=== PATIENT | female | born 1975 | race African-American/Black ===

== ENCOUNTER 2019-11-27 00:15 | Emergency (ER) | payer SELFPAY ==
[~2019-11-27] VITALS: Ht 162.6 cm; Wt 102.7 kg
--- NOTE | 2019-11-27 00:20 | PHYS DOC ---
Past History Past Medical History: Anemia, High Cholesterol, Other General Adult EDM: Chief Complaint: DIZZY/LIGHT HEADED HPI: HPI: ".. I ve been dizzy the last couple days....I even woke me up from sleep tonight.. the room spins... I get really nauseated... It was so bad .. I could not walk... I had a spell today.. and my mom was driving to [facility].. and I had to have her stop.... because I was going to vomit....It helps if I don't move... and close my eyes...until it passes... It is really bad if I sit up and turn to the right.. or if I lay down and roll over to the right... I almost vomit.. I got some Zofran at [facility] .. it seemed to help... but dizziness came back hard... 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 Symptoms have been present for last 48 hours.. Symptoms can be induced with rapid movements of head and turning to the right. Patient does have some increased nystagmus on rapidly reproducing position of head particularly in supine and rapidly setting her up. Patient denies any hearing loss with symptoms. Patient at times states the room appears to be spinning with severe onsets. Patient describes the sensation is like when she was a child she rode a spinning wheel and got off the world still seemed to be spinni ng even if she standing still. . The patient does not think she has any dysrhythmias that she is aware of with symptoms. Patient has not had any travel outside the [place] area. Patient denies any dyspnea with events of dizziness or vertigo . The patient denies any trauma. 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 Patient denies any history of fever or chills. Patient denies any recent cough. Patient denies any recent changes in use of caffeine. Patient denies any illicit drug use or alcohol use. (Does occasionally have a alcohol drink once or twice a year.) Patient does have a past history of anemia, and diabetes with her . Patient was seen at [facility] on 11/26/19 and symptoms seemed to respond to a dose of Zofran at that time. . Review of Systems: Review of Systems: Constitutional: Denies fever or chills Eyes: Denies change in visual acuity HENT: Denies nasal congestion or sore throat Respiratory: Denies cough or shortness of breath Cardiovascular: Denies chest pain or edema GI: Denies abdominal pain, nausea, vomiting, bloody stools or diarrhea : Denies dysuria Musculoskeletal: Denies back pain or joint pain Integument: Denies rash Neurologic: Denies headache, focal weakness or sensory changes . Complaints of episodic dizziness and vertigo x2 days Endocrine: Denies polyuria or polydipsia Lymphatic: Denies swollen glands Psychiatric: Denies depression or anxiety Heart Score: HEART Score for Chest Pain: HEART Score for Chest Pain Response (Comments) Value History Slighlty/Non-Suspicious 0 ECG Normal 0 Age < 45 0 Risk Factors No Risk Factors 0 Troponin < Normal Limit 0 Total 0 Risk Factors: Risk Factors: DM, Current or recent (<one month) smoker, HTN, HLP, family history of CAD, obesity. Risk Scores: Score 0 - 3: 2.5% MACE over next 6 weeks - Discharge Home Score 4 - 6: 20.3% MACE over next 6 weeks - Admit for Clinical Observation Score 7 - 10: 72.7% MACE over next 6 weeks - Early Invasive Strategies Family History: Family History: Diabetes and hypertension Current Medications: Current Meds: See nursing for home meds Allergies: Allergies: No known drug allergies Physical Exam: PE: Constitutional: Moderate acute distress, non-toxic appearance. [] HENT: Normocephalic, atraumatic, bilateral external ears normal, oropharynx moist, no oral exudates, nose normal. [] Eyes: PERRLA, EOMI, conjunctiva normal, no discharge. [] Neck: Normal range of motion, no tenderness, supple, no stridor. Does have a full thyroid. No bruits appreciated Cardiovascular:Heart rate regular rhythm, no murmur [] Lungs & Thorax: Bilateral breath sounds equal at apex on auscultation [] Abdomen: Bowel sounds normal, soft, no tenderness, no masses, no pulsatile masses. Obese Skin: Warm, dry, no erythema, no rash. [] Back: No tenderness, no CVA tenderness. [] Extremities: No tenderness, no cyanosis, no clubbing, ROM intact, no edema. [] Neurologic: Alert and oriented X 3, normal motor function, normal sensory function, no focal deficits noted. [] DTRs +2 patellar and brachial. 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 Left hand dominant.. Air conduction more than bone conduction with 128 fork. On bone conduction did have some lateralization to the right. Distal vibratory intact. No drift. Patient does have have a slightly wide gait. No nystagmus 6-8 beats inducible with movement of head to the right upon rapidly setting up or laying down. With eye closed did not have the dizzy feeling. Psychologic: Affect anxious, judgement normal, mood normal. [] EKG: EKG: My interpretation EKG shows a sinus rhythm at 71 bpm. No findings of acute morphology. Radiology/Procedures: Radiology/Procedures: [][place] [address] IMAGING REPORT Signed PATIENT: VAHID HERNANDEZ ACCOUNT: [id number] : 1975 LOCATION: ER AGE: 44 SEX: F EXAM STATUS: REG ER ORD. PHYSICIAN: KAR ACEVES MD REASON: interm. vertigo, balacne, nausea, x 2 days PROCEDURE: CT HEAD WO CONTRAST EXAM: CT Head without IV contrast INDICATION: Reason: interm. vertigo, balacne, nausea, x 2 days / Spl. Instructions: / History: TECHNIQUE: Multi-detector row CT images were obtained of the head without the use of IV contrast. All CT scans performed at this facility utilize dose optimization techniques as appropriate to the exam, including the following: Automated exposure control and adjustment of the mA and/or KV according to patient size (this includes techniques or standardized protocols for targeted exams where dose is indication/reason for exam). COMPARISON: None FINDINGS: BRAIN PARENCHYMA: No evidence of acute intraparenchymal hemorrhage or infarct. No abnormal parenchymal density or mass. VENTRICLES & EXTRA-AXIAL SPACES: Ventricles are within normal limits. Basilar cisterns are patent. No pathologic extra-axial fluid collection or mass. ORBITS: Orbital contents are unremarkable. SINUSES: Visualized paranasal sinuses and mastoid air cells are clear. OSSEOUS & SOFT TISSUES: Calvarium and skull base are intact. IMPRESSION: Normal CT of the head without contrast. Electronically signed by: Erica Martinez MD (11/27/2019 1:20 AM) [facility] [place]CTATED AND SIGNED BY: ERICA MARTINEZ MD DATE: 11/27/19 0120 Course & Med Decision Making: Course & Med Decision Making Pertinent Labs and Imaging studies reviewed. (See chart for details) Discussed options of treatment and evaluation of patient. Patient request some work-up for the condition since it is been persistent and more severe in last 24 hours. Patient declines symptomatic treatment with medications such as meclizine and requested some further evaluation. Discuss lab results with patient at this time declines admission and further evaluation. Recommend patient follow her primary care and neurology. Was given the name s and numbers of Dr. Campoverde and Dr. Logan. Patient return if any concerns. Will do a course of prednisone 50 mg daily for 5 days. Patient to take Benadryl 25 to 50 mg up to 4 times a day and Zofran 8 mg as needed for active nausea and vomiting. Symptoms somewhat suggestive of inner ear problem particularly on right. Will treat the UTI with Bactrim DS twice a day. Patient follow-up review pending labs and ED evaluation with primary care. Patient return for any concerns. Did recommend patient take daily aspirin. Pt. to follow up pending labs. Impression: 1. Vertigo-most like a secondary to a viral syndrome 2. Mild anemia hemoglobin 11.4 3. UTI 4. Viral syndrome [] Dragon Disclaimer: Renetta Disclaimer: This electronic medical record was generated, in whole or in part, using a voice recognition dictation system. Departure Departure: Disposition: HOME/RESIDENCE PRIOR TO ADM Condition: STABLE Referrals: PCP,NO (PCP) Scripts Sulfamethoxazole/Trimethoprim (BACTRIM DS TABLET) 1 Each Tablet 1 TAB PO BID for uti for 7 Days, #14 TAB 0 Refills Prov: KAR ACEVES MD 11/27/19 Ondansetron Hcl (ZOFRAN) 8 Mg Tablet 8 MG PO QIDPRN PRN for NAUSEA, #30 BOTTLE Prov: KAR ACEVES MD 11/27/19 Prednisone (PREDNISONE) 50 Mg Tablet 1 TAB PO DAILY for dizzy for 5 Days, #5 TAB Prov: KAR ACEVES MD 11/27/19 Justification of Admission: Justification of Admission: Justification of Admission Dx: N/A Dragon Disclaimer This chart was dictated in whole or in part using Voice Recognition software in a busy, high-work load, and often noisy Emergency Department environment. It may contain unintended and wholly unrecognized errors or omissions. KAR ACEVES MD Nov 27, 2019 00:20
[2019-11-27] MEDS ORDERED: IV RINGERS SOLUTION,LACTATED 1,000 ML IV SCH (00:42)
[2019-11-27] MEDS ORDERED: MECLIZINE 12.5 MG TABLET. PO ONE (00:45)
--- NOTE | 2019-11-27 00:56 | EKG ---
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
[2019-11-27 01:15] LABS: BASO # 0.1 x10^3/uL (0.0-0.2); BASO % 1 % (0-3); EOS # 0.1 x10^3/uL (0.0-0.7); EOS % 1 % (0-3); HEMATOCRIT 35.8 % (36.0-47.0); HEMOGLOBIN 11.4 g/dL (12.0-15.5); LYMPH # 2.3 x10^3/uL (1.0-4.8); LYMPH % 40 % (24-48); MEAN CORPUSCULAR HEMOGLOBIN 26 pg (25-35); MEAN CORPUSCULAR HGB CONC 32 g/dL (31-37); MEAN CORPUSCULAR VOLUME 83 fL (79-100); MONO # 0.3 x10^3/uL (0.0-1.1); MONO % 5 % (0-9); NEUT # 3.1 x10^3uL (1.8-7.7); NEUT % 52 % (31-73); PLATELET COUNT 286 x10^3/uL (140-400); RED BLOOD COUNT 4.33 x10^6/uL (3.50-5.40); WHITE BLOOD COUNT 5.8 x10^3/uL (4.0-11.0)
[2019-11-27 01:16] LABS: CALCIUM 9.7 mg/dL (8.5-10.1); CREATININE 1.1 mg/dL (0.6-1.0); GFR 65.9; POTASSIUM 4.5 mmol/L (3.5-5.1)
--- NOTE | 2019-11-27 01:23 | RAD ---
EXAM: CT Head without IV contrast INDICATION: Reason: interm. vertigo, balacne, nausea, x 2 days / Spl. Instructions: / History: TECHNIQUE: Multi-detector row CT images were obtained of the head without the use of IV contrast. All CT scans performed at this facility utilize dose optimization techniques as appropriate to the exam, including the following: Automated exposure control and adjustment of the mA and/or KV according to patient size (this includes techniques or standardized protocols for targeted exams where dose is indication/reason for exam). COMPARISON: None FINDINGS: BRAIN PARENCHYMA: No evidence of acute intraparenchymal hemorrhage or infarct. No abnormal parenchymal density or mass. VENTRICLES & EXTRA-AXIAL SPACES: Ventricles are within normal limits. Basilar cisterns are patent. No pathologic extra-axial fluid collection or mass. ORBITS: Orbital contents are unremarkable. SINUSES: Visualized paranasal sinuses and mastoid air cells are clear. OSSEOUS & SOFT TISSUES: Calvarium and skull base are intact. IMPRESSION: Normal CT of the head without contrast. Electronically signed by: Stephanie Martinez MD (11/27/2019 1:20 AM) [facility] [facility] [place]
[2019-11-27 01:28] LABS: C REACTIVE PROTEIN 1.6 mg/L (0-3.3); DIRECT BILIRUBIN 0.1 mg/dL (0.0-0.2); TOTAL BILIRUBIN 0.2 mg/dL (0.2-1.0); TOTAL PROTEIN 7.9 g/dL (6.4-8.2)
[2019-11-27 02:07] LABS: BARBITURATES NEG (NEG); BENZODIAZEPINES NEG (NEG); CANNABINOIDS POS (NEG); COCAINE NEG (NEG); METHADONE NEG (NEG); OPIATES NEG (NEG); PHENCYCLIDINE NEG (NEG)
[2019-11-27 02:09] LABS: BILIRUBIN,URINE NEG (NEG); CLARITY,URINE CLEAR; COLOR,URINE YELLOW; GLUCOSE,URINE NEG (NEG)
[2019-11-27 02:10] LABS: BACTERIA,URINE 0 /HPF (0-FEW); NITRITE,URINE NEG (NEG); RBC,URINE 0 /HPF (0-2); SQUAMOUS EPITHELIAL CELL,UR MANY /LPF; UROBILINOGEN,URINE 0.2 mg/dL (0.2 mg/dL)
[2019-11-27 02:11] LABS: AMPHETAMINE/METHAMPHETAMINE NEG (NEG)
[2019-11-27] MEDS ORDERED: SMZ/TMP 800/160MG TABLET. PO ONE ×2 (02:15→02:41)
[2019-11-27] MEDS ORDERED: diphenhydrAMINE 50 MG/ML VIAL IVP ONE (02:15)
[2019-11-27] MEDS ORDERED: methylPREDNISolone SOD SUCC PF 125 MG/2 ML VIAL. IV ONE (02:15)
[2019-11-27] MEDS ORDERED: PRED50TA PO (02:27)
[2019-11-27] MEDS ORDERED: ONDA8TAB9 PO (02:27)
[2019-11-27] MEDS ORDERED: SULF1TAB24 PO (02:29)
[2019-11-27] MEDS ORDERED: ONDANSETRON PF 4 MG/2 ML VIAL. IVP ONE (02:30)
[2019-11-27] MEDS ORDERED: ASPIRIN 325 MG TABLET PO ONE (02:30)
[2019-11-27] MEDS ORDERED: methylPREDNISolone SOD SUCC PF 125 MG/2 ML VIAL. ONE (02:41)
[2019-11-27] MEDS ORDERED: ASPIRIN CHEWABLE 81 MG TABLET. ONE (02:41)
[2019-11-27] MEDS ORDERED: ONDANSETRON PF 4 MG/2 ML VIAL. ONE (02:41)
[2019-11-27] MEDS ORDERED: diphenhydrAMINE 50 MG/ML VIAL ONE (02:41)
[2019-11-27] MEDS ORDERED: ASPIRIN 325 MG TABLET ONE (02:54)
--- NOTE | 2019-11-27 03:04 | RAD ---
EXAM: PORTABLE CHEST 1V INDICATION: Reason: dizzy, dyspnea / Spl. Instructions: / History: . TECHNIQUE: Single view COMPARISON: None FINDINGS: The heart size is normal. The great vessels appear unremarkable. There is no hilar or mediastinal mass. The lungs are clear. There is no pleural effusion or pneumothorax. There are no significant osseous abnormalities. IMPRESSION: No active cardiopulmonary disease. Electronically signed by: Stephanie Martinez MD (11/27/2019 3:02 AM) [facility] [place]
[2019-11-27 03:20] VITALS: BP 127/62
== END 2019-11-27 03:30 | disposition home or self-care (01) ==
LOC: ER 00:15
DX: D64.9 Anemia, unspecified (principal); N39.0 Urinary tract infection, site not specified; B34.9 Viral infection, unspecified; R42 Dizziness and giddiness; E78.00 Pure hypercholesterolemia, unspecified; Z86.2 Personal history of diseases of the blood and blood-forming organs and certain disorders involving the immune mechanism
CPT/HCPCS: 36415; 70450; 71045; 80048; 80061; 80076; 80307; 81001; 82550; 83735; 83880; 84443; 84484; 85025; 85610; 85730; 86140; 87086; 93005; 96361; 96374; 96375; 99285; J1200; J2405; J2930; J7120; J8597